=== PATIENT | male | born 1995 | race Two or more races ===

== ENCOUNTER 2021-11-05 20:01 | Emergency (ER) | payer OTHER ==
[~2021-11-05] VITALS: Ht 170.2 cm; Wt 65.8 kg
--- NOTE | 2021-11-05 20:15 | NUR ---
pt in room 2a with laceration to right thumb. Dr. Bourgeois at bedside for suture.
[2021-11-05] MEDS ORDERED: LIDOCAINE 1%-EPI 1:100,000 20 ML VIAL ONE (20:24)
[2021-11-05] MEDS ORDERED: CEPH500T PO (20:34)
[2021-11-05 20:44] VITALS: BP 140/90
--- NOTE | 2021-11-05 20:44 | NUR ---
Patient discharged to home in stable condition. Written and verbal after care instructions given. Patient verbalizes understanding of instructions. Stressed follow up or return to ER for worsening s/s.
[2021-11-05] MEDS ORDERED: LIDOCAINE 1%-EPI 1:100,000 20 ML VIAL IJ ONE (20:45)
[2021-11-05] MEDS ORDERED: SODIUM BICARBONATE 4.2 % (NEUT) 5 ML VIAL TP ONE (20:45)
[2021-11-05] MEDS ORDERED: CEphaleXIN 500 MG CAPSULE PO ONE (20:45)
[2021-11-05] MEDS ORDERED: CEphaleXIN 500 MG CAPSULE ONE (20:48)
== END 2021-11-05 20:45 | disposition home or self-care (01) ==
LOC: ER 20:07
DX: S61.011A Laceration without foreign body of right thumb without damage to nail, initial encounter (principal); W26.9XXA Contact with unspecified sharp object(s), initial encounter; Y93.H3 Activity, building and construction; Y92.61 Building [any] under construction as the place of occurrence of the external cause; Y99.0 Civilian activity done for income or pay; R03.0 Elevated blood-pressure reading, without diagnosis of hypertension
CPT/HCPCS: 12001; 99283; J3490 ×2; A4217; A4663